=== PATIENT | female | born 1995 | race Caucasian/White ===

== ENCOUNTER 2023-04-09 09:01 | Outpatient (CLI) | payer BC, SELFPAY ==
--- NOTE | ~2023-04-09 | XR_ITS ---
Supine view of the abdomen Clinical history: Abdominal bloating and constipation Findings: Bowel gas pattern is nonspecific. Moderate stool noted in the right colon. No evidence for obstruction or free air. No abnormal mass lesion or calcification is seen. Osseous structures are int act. Impression: Nonspecific bowel gas pattern. Moderate stool right colon. Correlate for constipation. Reviewed, dictated and finalized at [facility]. Impression: Nonspecific bowel gas pattern. Moderate stool right colon. Correlate for emmai bud.
== END 2023-04-09 09:02 | disposition home or self-care (01) ==
LOC: ANHIMG 09:10
PROVIDERS: PCP Physician Assistant; Visit Provider Nurse Practitioner
DX: K58.1 Irritable bowel syndrome with constipation (principal); R11.10 Vomiting, unspecified
CPT/HCPCS: 74018